=== PATIENT | female | born 1975 | race Caucasian/White ===

== ENCOUNTER → 2017-08-07 | Outpatient (CLI) | payer MEDICAID ==
--- NOTE | 2017-08-07 17:40 | RADIOLOGY REPORT PS360 ---
HIP LT 2-3V W/PELVIS IF PERFOR HISTORY: ACUTE LEFT HIP PAIN ORDERING PHYSICIAN: Herminia Grissom APRN PATIENT AGE: 42 years COMPARISON: None FINDINGS: No fracture or dislocation is evident. No significant degenerative change. No lytic or blastic change. Unremarkable soft tissues. There is been prior fusion at L5-S1 IMPRESSION: Negative left hip
[2017-08-07 18:53] LABS: AMPHETAMINES/METAMPHETAMINES NEGATIVE ng/mL (<1000)
== END ==
LOC: LAB 16:48 → RAD 16:48
PROVIDERS: Nurse Practitioner Family
DX: M25.552 Pain in left hip (principal); Z79.899 Other long term (current) drug therapy